=== PATIENT | male | born 1950 | race Caucasian/White ===

== ENCOUNTER 2020-04-20 20:41 | Emergency (ER) | payer MEDICARE ==
[~2020-04-20] VITALS: Ht 172.7 cm; Wt 63.5 kg
[2020-04-20 21:15] LABS: BASOPHILS ABSOLUTE AUTO 0.09 K/mm3 (0.00-0.23); BASOPHILS PERCENT AUTO 1 % (0-2); EOSINOPHILS ABSOLUTE AUTO 0.18 K/mm3 (0.00-0.68); EOSINOPHILS PERCENT AUTO 2 % (0-6); Hematocrit 47.3 % (37.0-53.0); Hemoglobin 15.5 g/dL (13.5-17.5); IMMATURE GRAN ABSOLUTE AUTO 0.03 K/mm3 (0.00-0.10); IMMATURE GRAN PERCENT AUTO 0 % (0-1); LYMPHOCYTES ABSOLUTE AUTO 1.73 K/mm3 (0.84-5.20); LYMPHOCYTES PERCENT AUTO 18 % (21-46); MONOCYTES ABSOLUTE AUTO 0.67 K/mm3 (0.16-1.47); MONOCYTES PERCENT AUTO 7 % (4-13); Mean Corpuscular HGB 32.8 pg (26.0-34.0); Mean Corpuscular HGB Conc 32.8 g/dL (31.5-36.5); Mean Corpuscular Volume 100 fL (80-100); Mean Platelet Volume 10.8 fL (9.1-12.4); NEUTROPHILS ABSOLUTE AUTO 7.02 K/mm3 (1.96-9.15); NEUTROPHILS PERCENT AUTO 72 % (41-73); Platelet Count 212 K/mm3 (150-400); RDW Coefficient Variation 13.1 % (11.7-14.2); RDW Standard Deviation 48.7 fL (35.1-46.3); Red Blood Cell Count 4.73 M/mm3 (4.30-5.90); White Blood Cell Count 9.72 K/mm3 (4.00-11.30)
[2020-04-20 21:36] LABS: Troponin I <0.015 ng/mL (0.000-0.040)
[2020-04-20 22:02] LABS: Alanine Aminotransfer (ALT/SGP 32 U/L (12-78); Albumin, Blood 4.4 g/dL (3.4-5.0); Albumin/Globulin Ratio 1.1 (0.8-1.8); Alk Phos 60 U/L (50-136); Anion Gap 7 mmol/L (6-16); Aspartate Aminotrans (AST/SGOT 24 U/L (12-37); Bilirubin, Total 0.3 mg/dL (0.1-1.0); Blood Urea Nitrogen 11 mg/dL (8-24); Bun/Creatinine Ratio 11.1 (12.0-20.0); CO2, Blood 26 mmol/L (21-32); Calcium, Blood 9.3 mg/dL (8.5-10.1); Chloride, Blood 112 mmol/L (98-108); Creatinine, Blood 0.99 mg/dL (0.60-1.20); Glomerular Filtration Rate >60 (60-); Potassium, Blood 3.4 mmol/L (3.5-5.5); Sodium, Blood 145 mmol/L (136-145); Total Protein, Blood 8.4 g/dL (6.4-8.2)
[2020-04-20 22:03] LABS: Glucose, Blood 46 mg/dL (70-99)
[2020-04-20 22:35] LABS: Magnesium, Blood 1.9 mg/dL (1.6-2.4)
[2020-04-20 22:35] LABS: Source, Urine Clean Catch
[2020-04-20 22:41] LABS: Bilirubin, Urine Neg (Neg); Blood, Urine Neg (Neg); Glucose Qualitative, Urine 2+ (Neg); Ketones, Urine Neg (Neg); Leukocyte Esterase, Urine Neg (Neg); Nitrite, Urine Neg (Neg); Protein, Urine Neg (Neg); Urobilinogen, Urine NORM (Normal)
[2020-04-20 22:45] LABS: Appearance, Urine Clear (Clear); Color, Urine Yellow (P-Yellow)
[2020-04-20] MEDS ORDERED: METO10 PO (22:58)
== END 2020-04-21 00:25 | disposition home or self-care (01) ==
LOC: ER 20:41
PROVIDERS: Physician Assistant
DX: K56.7 Ileus, unspecified (principal); E16.2 Hypoglycemia, unspecified; E83.42 Hypomagnesemia; E87.6 Hypokalemia
CPT/HCPCS: 36415; 74176; 80053; 81003; 82947; 83690; 83735; 84484; 85025; 93005; 93010; 96361; 96374; 96375; 99284-25; A9270; J2765; J3475; J3480; J7030

== ENCOUNTER 2020-08-06 13:59 | Emergency (ER) | payer MEDICARE ==
[~2020-08-06] VITALS: Ht 177.8 cm; Wt 69.0 kg
[~2020-08-06 13:59] MED LIST: METO10 PO
[2020-08-06] MEDS ORDERED: CEPH500 PO (17:32)
== END 2020-08-06 17:50 | disposition home or self-care (01) ==
LOC: ER 13:59
DX: S62.522B Displaced fracture of distal phalanx of left thumb, initial encounter for open fracture (principal); F17.200 Nicotine dependence, unspecified, uncomplicated; Z23 Encounter for immunization; W31.2XXA Contact with powered woodworking and forming machines, initial encounter
CPT/HCPCS: 12002; 73140; 90471; 90714; 99282; A9270

== ENCOUNTER 2021-07-13 11:18 | Emergency (ER) | payer MEDICARE ==
[~2021-07-13] VITALS: Ht 177.8 cm; Wt 64.0 kg
[~2021-07-13 11:18] MED LIST changes: +CEPH500 PO
== END 2021-07-13 13:59 | disposition home or self-care (01) ==
LOC: ER 11:18
DX: L73.9 Follicular disorder, unspecified (principal); Z87.891 Personal history of nicotine dependence
CPT/HCPCS: 10061; 99283-25

== ENCOUNTER 2023-03-11 09:05 | Emergency (ER) | payer MEDICARE ==
[~2023-03-11] VITALS: Ht 172.7 cm; Wt 65.8 kg
[2023-03-11 09:53] LABS: Hematocrit 31.7 % (37.0-53.0); Hemoglobin 10.8 g/dL (13.5-17.5); Mean Corpuscular HGB 32.4 pg (26.0-34.0); Mean Corpuscular HGB Conc 34.1 g/dL (31.5-36.5); Mean Corpuscular Volume 95 fL (80-100); Mean Platelet Volume 8.9 fL (9.1-12.4); Platelet Count 411 K/mm3 (150-400); RDW Coefficient Variation 13.3 % (11.7-14.2); Red Blood Cell Count 3.33 M/mm3 (4.30-5.90); White Blood Cell Count 3.03 K/mm3 (4.00-11.30)
[2023-03-11] MEDS ORDERED: Ventolin/Prove6.7 GM INH (10:11)
[2023-03-11] MEDS ORDERED: ONDANSETRON ODT 8MG (10:11)
[2023-03-11] MEDS ORDERED: LEVOFLOXACIN50011 PO (10:11)
[2023-03-11] MEDS ORDERED: ATOR10 PO (10:12)
[2023-03-11 10:19] LABS: Albumin, Blood 2.1 g/dL (3.4-5.0); Albumin/Globulin Ratio 0.4 (0.8-1.8); Bilirubin, Total 0.3 mg/dL (0.1-1.0); Bun/Creatinine Ratio 13.8 (12.0-20.0); Calcium, Blood 8.7 mg/dL (8.5-10.1); Creatinine, Blood 1.16 mg/dL (0.60-1.20); Globulin, Blood 4.8 g/dL (2.2-4.0); Potassium, Blood 3.9 mmol/L (3.5-5.5); Total Protein, Blood 6.9 g/dL (6.4-8.2)
[2023-03-11 10:34] LABS: BASOPHILS ABSOLUTE MAN 0.03 K/mm3 (0.00-0.23); BASOPHILS PERCENT MAN 1 % (0-2); EOSINOPHILS ABSOLUTE MAN 0.12 K/mm3 (0.00-0.68); EOSINOPHILS PERCENT MAN 4 % (0-6); LYMPHOCYTES % ATYPICAL MANUAL 7 % (0-0); LYMPHOCYTES ABSOLUTE MAN 1.21 K/mm3 (0.84-5.20); LYMPHOCYTES PERCENT MAN 33 % (21-46); MONOCYTES ABSOLUTE MAN 0.33 K/mm3 (0.16-1.47); MONOCYTES PERCENT MAN 11 % (4-13); NEUTROPHILS ABSOLUTE MAN 1.33 K/mm3 (1.96-9.15); SEG NEUTROPHILS PERCENT MAN 44 % (41-73); TOTAL CELLS COUNTED 100
[2023-03-11] MEDS ORDERED: MORP15ER PO (11:48)
[2023-03-11 12:34] VITALS: BP 104/67
[2023-03-17] MEDS ORDERED: DEXA4 (15:37)
== END 2023-03-11 12:33 | disposition home or self-care (01) ==
LOC: ER 09:05
PROVIDERS: Emergency Medicine
DX: J90 Pleural effusion, not elsewhere classified (principal); C34.92 Malignant neoplasm of unspecified part of left bronchus or lung; Z79.899 Other long term (current) drug therapy; Z87.891 Personal history of nicotine dependence
CPT/HCPCS: 71045; 80053; 83880; 84484; 85025; 93005; 93010; 96374; 99285-25; J2270

== ENCOUNTER 2023-07-03 13:22 | Emergency (ER) | payer MEDICARE ==
[~2023-07-03] VITALS: Ht 177.8 cm; Wt 79.4 kg
[~2023-07-03 13:22] MED LIST changes: +ATOR10 PO; +DEXA4; +LEVOFLOXACIN50011 PO; +MORP15ER PO; +ONDANSETRON ODT 8MG; +Ventolin/Prove6.7 GM INH
[2023-07-03 15:58] VITALS: BP 99/77
== END 2023-07-03 17:53 | disposition home or self-care (01) ==
LOC: ER 13:22
DX: Z00.00 Encounter for general adult medical examination without abnormal findings (principal); Z98.890 Other specified postprocedural states; C34.90 Malignant neoplasm of unspecified part of unspecified bronchus or lung; I50.9 Heart failure, unspecified; I25.2 Old myocardial infarction; I25.10 Atherosclerotic heart disease of native coronary artery without angina pectoris; Z87.891 Personal history of nicotine dependence; Z79.899 Other long term (current) drug therapy
CPT/HCPCS: 99283

== ENCOUNTER 2023-08-13 12:38 | Inpatient (IN) | payer MEDICARE ==
[~2023-08-13] VITALS: Ht 172.7 cm; Wt 54.1 kg
[2023-08-13 13:07] LABS: BASOPHILS ABSOLUTE AUTO 0.01 K/mm3 (0.00-0.23); BASOPHILS PERCENT AUTO 0 % (0-2); EOSINOPHILS ABSOLUTE AUTO 0.01 K/mm3 (0.00-0.68); EOSINOPHILS PERCENT AUTO 0 % (0-6); Hematocrit 33.1 % (37.0-53.0); Hemoglobin 10.1 g/dL (13.5-17.5); IMMATURE GRAN ABSOLUTE AUTO 0.03 K/mm3 (0.00-0.10); IMMATURE GRAN PERCENT AUTO 0 % (0-1); LYMPHOCYTES ABSOLUTE AUTO 0.44 K/mm3 (0.84-5.20); LYMPHOCYTES PERCENT AUTO 5 % (21-46); MONOCYTES ABSOLUTE AUTO 0.59 K/mm3 (0.16-1.47); MONOCYTES PERCENT AUTO 7 % (4-13); Mean Corpuscular HGB 27.8 pg (26.0-34.0); Mean Corpuscular HGB Conc 30.5 g/dL (31.5-36.5); Mean Corpuscular Volume 91 fL (80-100); Mean Platelet Volume 9.8 fL (9.1-12.4); NEUTROPHILS ABSOLUTE AUTO 7.72 K/mm3 (1.96-9.15); NEUTROPHILS PERCENT AUTO 88 % (41-73); Platelet Count 218 K/mm3 (150-400); RDW Coefficient Variation 18.6 % (11.7-14.2); Red Blood Cell Count 3.63 M/mm3 (4.30-5.90)
[2023-08-13 13:35] LABS: Albumin, Blood 1.9 g/dL (3.4-5.0); Albumin/Globulin Ratio 0.3 (0.8-1.8); Bilirubin, Total 0.6 mg/dL (0.1-1.0); Bun/Creatinine Ratio 29.5 (12.0-20.0); Creatinine, Blood 0.85 mg/dL (0.60-1.20); Globulin, Blood 5.7 g/dL (2.2-4.0); Total Protein, Blood 7.6 g/dL (6.4-8.2)
[2023-08-13 14:27] LABS: Influenza A, PCR NEGATIVE (NEGATIVE); Influenza B, PCR NEGATIVE (NEGATIVE); Resp Syncytial Virus, PCR NEGATIVE (NEGATIVE); SARS-Cov-2 (COVID-19) PCR, MMC NEGATIVE (NEGATIVE)
[2023-08-13] MEDS ORDERED: Morphine Sulfate 10 MG/ML 1MLSYR IV ONE (14:30)
[2023-08-13 14:56] LABS: Source, Urine Clean Catch
[2023-08-13 14:58] LABS: Appearance, Urine Clear (Clear); Blood, Urine Neg (Neg); Color, Urine Amber (P-Yellow); Glucose Qualitative, Urine Neg (Neg); Ketones, Urine 1+ (Neg); Leukocyte Esterase, Urine Neg (Neg); Nitrite, Urine Neg (Neg); Protein, Urine 1+ (Neg); Specific Gravity, Urine 1.025 (1.003-1.022); Urobilinogen, Urine NORM (Normal)
[2023-08-13 15:07] LABS: Bilirubin, Urine 1+ (Neg)
[2023-08-13] MEDS ORDERED: NS 1,000 ML IV SCH (16:35)
[2023-08-13] MEDS ORDERED: Azithromycin 500 MG in NS 250 ML IV ONE (18:30)
[2023-08-13] MEDS ORDERED: CefTRIAXone Sodium 1,000 MG in NS 50 ML IV ONE (18:30)
[2023-08-13] MEDS ORDERED: Morphine Sulfate 4 MG/1 ML Injection IV PRN (19:45)
[2023-08-13] MEDS ORDERED: Acetaminophen 325 MG TABLET PO PRN (19:55)
[2023-08-13] MEDS ORDERED: FLU VACC QS2023-24(6MOS UP)/PF 60 MCG/0.5 ML SYRINGE IM ONE (19:55)
[2023-08-13] MEDS ORDERED: Ondansetron HCl 2 MG / ML 2ML Vial IV PRN (20:00)
[2023-08-13] MEDS ORDERED: Albuterol 2.5 MG/3 ML VIAL INH PRN (20:00)
[2023-08-13] MEDS ORDERED: Ampicillin Sod/Sulbactam Sod 3 GM in NS 100 ML IV SCH (20:30)
[2023-08-13] MEDS ORDERED: Lactobacil 2-S.Thermo-Bifido 1 1 Cap PO SCH (21:00)
[2023-08-13] MEDS ORDERED: Albuterol 2.5 MG/3 ML VIAL INH ONE (21:00)
[2023-08-13 21:45] VITALS: BP 89/72
[2023-08-13] MEDS ORDERED: NS 250 ML IV PRN (21:45)
--- NOTE | 2023-08-13 22:34 | NUR ---
ARRIVAL TO PCU: PT ARRIVED TO PCU6 AT 5 VIA [facility]. REPORT TAKEN FROM LEVI RN, THIS RN ASSUMED CARE OF PT. PT LETHARGIC ON ARRIVAL, ABLE TO WAKE EASILY TO VERBAL STIMULI. ORIENTED TO SELF AND FAMILY, STATES HE IS AT HOME AND IT IS THE 1970'S. PT REPEATEDLY STATES "PLEASE HELP ME" BUT UNABLE TO STATE SPECIFIC NEEDS. SLID FROM [facility] TO BED BY STAFF. SPO2 80'S ON ARRIVAL, O2 TITRATED TO 8-10L TO MAINTAIN SPO2 >90%. ABLE TO TITRATE BACK DOWN TO 6L VIA NC. SBP 80'S W/ MAP >65. SINUS RHYTHM ON TELE. DENIES CHEST PAIN/PRESSURE BUT C/O GENERALIZED PAIN. MEDICATED IN ED FOR PAIN PRIOR TO TRANSPORT, REPOSITIONED ON LEFT SIDE FOR COMFORT. GI/ APPEARS WNL ON INITIAL ASSESSMENT. SKIN PALE & FRAGILE W/ MULTIPLE SKIN TEARS & SCABS SCATTERED T/O. STAGE 1 PRESSURE INJURY PRESENT ON COCCYX, APPROX 1CM IN DIAMETER. PT REMAINS ON SIDE TO ALLEVIATE PRESSURE ON AREA OF BREAKDOWN. SCD'S APPLIED TO BLE PER ORDERS. IV ABX INFUSING PER EMAR. PT UNABLE TO PROVIDE HISTORY OR MEDS/ALLERGIES AT THIS TIME. ORIENTED TO ROOM/UNIT/CALL LIGHT. BED ALARM ON FOR PT SAFETY.
[2023-08-13 23:21] VITALS: BP 90/63
[2023-08-14] MEDS ORDERED: OLANZapine 10 MG Vial IM ONE (02:35)
--- NOTE | 2023-08-14 02:39 | NUR ---
PHYSICIAN CONTACT: PT BECOMING INCREASINGLY AGITATED THIS AM, YELLING OUT "HELP ME" AND "MERCEDES, PLEASE COME HELP ME" APPROXIMATELY EVERY 30-60 SECONDS. PT CONFUSED, APPEARS ANXIOUS. UNABLE TO STATE WHY HE NEEDS HELP OR IF HE IS IN PAIN. PAIN TREATED PER EMAR BASED ON FLACC SCALE W/O IMPROVEMENT IN AGITATION. CALL PLACED TO . WITH ORDERS TO BLADDER SCAN FOR RETENTION THEN ADMINISTER ZYPREXA IF NO IMPROVEMENT. BLADDER SCAN >420ML, STRAIGHT CATH PERFORMED BY THIS RN W/ 500ML OUTPUT. IF AGITATION DOES NOT IMPROVE FOLLOWING COMPLETION OF STRAIGHT CATH, WILL ADMINISTER ZYPREXA PER EMAR.
[2023-08-14 03:12] VITALS: BP 83/67
[2023-08-14 04:12] LABS: Hematocrit 25.3 % (37.0-53.0); Hemoglobin 7.9 g/dL (13.5-17.5); Mean Corpuscular HGB 28.1 pg (26.0-34.0); Mean Corpuscular HGB Conc 31.2 g/dL (31.5-36.5); Mean Corpuscular Volume 90 fL (80-100); Mean Platelet Volume 9.8 fL (9.1-12.4); Platelet Count 175 K/mm3 (150-400); RDW Coefficient Variation 18.5 % (11.7-14.2); RDW Standard Deviation 61.4 fL (35.1-46.3); Red Blood Cell Count 2.81 M/mm3 (4.30-5.90); White Blood Cell Count 6.16 K/mm3 (4.00-11.30)
[2023-08-14 04:30] LABS: Calcium, Blood 8.3 mg/dL (8.5-10.1); Creatinine, Blood 0.74 mg/dL (0.60-1.20); Potassium, Blood 3.5 mmol/L (3.5-5.5)
--- NOTE | 2023-08-14 05:01 | NUR ---
END OF SHIFT NOTE: SEE PREVIOUS NOTES FOR UPDATES. PT RECEIVED 1X DOSE OF ZYPREXA DUE TO AGITATION W/ MODERATE IMPROVEMENT. ABLE TO SLEEP IN SHORT INCREMENTS. VITALS REMAIN STABLE; BP SOFT BUT MAP >65. OXYGEN TITRATED DOWN TO 3L VIA NC W/ SPO2 >90%. RESPIRATIONS EVEN & UNLABORED. Q2HR REPOSITIONING IMPLEMENTED. NO OTHER NEEDS AT THIS TIME. CALL LIGHT IN REACH, BED ALARM ON FOR SAFETY. WILL REPORT TO ONCOMING RN.
[2023-08-14 07:00] VITALS: BP 92/72
[2023-08-14] MEDS ORDERED: Enoxaparin 40 MG/0.4 ML SYR SC SCH (09:00)
[2023-08-14 11:39] VITALS: BP 92/71
[2023-08-14] MEDS ORDERED: ATOR10 PO (11:54)
[2023-08-14] MEDS ORDERED: FOLI1 PO (11:55)
[2023-08-14] MEDS ORDERED: Prochlorperazin10 MG PO (11:55)
[2023-08-14] MEDS ORDERED: DECADRON4 M1 (11:56)
[2023-08-14] MEDS ORDERED: Aspir 8181 MG PO (11:57)
[2023-08-14 12:11] LABS: Hematocrit 28.4 % (37.0-53.0); Hemoglobin 8.7 g/dL (13.5-17.5)
--- NOTE | 2023-08-14 12:14 | NUR ---
Palliative care had in depth conversation with pt's son and daughter at bedside today. They wanted to discuss code status, and while they initially elected Full Code, they decided today to change pt's code status to DNR. The were not ready for Comfort Care at this time, but pt's son states the patient did have a hospice eval 2 weeks ago, and he was competent at that time, and declined hospice services then. He is currently being seen by Home Health for PleurX management. The plan at this time is to continue treating and watch patient for the next 2 or so days then re-evaluate his plan of care.
[2023-08-14 12:29] LABS: Percent Saturation 8.7 % (20.0-50.0)
[2023-08-14 14:41] LABS: Source, Urine Foley catheter
[2023-08-14 14:44] LABS: Appearance, Urine Clear (Clear); Bilirubin, Urine Neg (Neg); Blood, Urine Neg (Neg); Color, Urine Yellow (P-Yellow); Glucose Qualitative, Urine Neg (Neg); Ketones, Urine Neg (Neg); Leukocyte Esterase, Urine 1+ (Neg); Nitrite, Urine Neg (Neg); Protein, Urine 2+ (Neg); Urobilinogen, Urine 1+ (Normal)
[2023-08-14] MEDS ORDERED: Azithromycin 500 MG in NS 250 ML IV SCH (15:00)
[2023-08-14] MEDS ORDERED: Morphine Sulfate 4 MG/1 ML Injection IV PRN (15:10)
[2023-08-14 15:24] LABS: Bacteria Few /hpf; Hyaline Casts 0-2 /lpf (0-2); Red Blood Cells, Urine 0-2 /hpf (0-2); Squamous Epithelial Cells Rare /hpf (Few)
[2023-08-14] MEDS ORDERED: Pantoprazole Sodium 40 MG Injection IV SCH (16:30)
[2023-08-14 16:45] VITALS: BP 80/63
--- NOTE | 2023-08-14 17:59 | NUR ---
SHIFT SUMMARY PT ALERT AND ORIENTED TO SELF AND FAMILY. PT DENIES CHEST PAIN/PRESSURE. PT HYPOTENSIVE, BP TRENDING DOWN MAP>65 NOTIFIED. SPO2 >92% ON 2L O2 VIA NC. PT EASILY AGITATED WHEN REPOSITIONED IN BED BUT IS REDIRECTABLE. PT URINARY RETENTION THROUGHOUT SHIFT SEE BLADDER SCAN CHARTING. MERCADO PLACED DRAINING TO GRAVITY. PALLIATIVE CARE CONSULTED FAMILY AND PT TODAY. PT CODE STATUS CHANGED TO DNR. PT MEDICATED FOR PAIN PER EMAR. PT REPOSITIONED FREQUENTLY. NO ACUTE CHANGES.
[2023-08-14] MEDS ORDERED: Midodrine 5 MG Tab PO SCH (18:00)
[2023-08-14 19:36] VITALS: BP 81/58
[2023-08-14 23:39] VITALS: BP 93/60
[2023-08-15 03:35] LABS: BASOPHILS PERCENT AUTO 0 % (0-2); EOSINOPHILS ABSOLUTE AUTO 0.03 K/mm3 (0.00-0.68); EOSINOPHILS PERCENT AUTO 1 % (0-6); Hematocrit 24.2 % (37.0-53.0); Hemoglobin 7.6 g/dL (13.5-17.5); IMMATURE GRAN ABSOLUTE AUTO 0.02 K/mm3 (0.00-0.10); IMMATURE GRAN PERCENT AUTO 0 % (0-1); LYMPHOCYTES ABSOLUTE AUTO 0.56 K/mm3 (0.84-5.20); LYMPHOCYTES PERCENT AUTO 10 % (21-46); MONOCYTES ABSOLUTE AUTO 0.42 K/mm3 (0.16-1.47); MONOCYTES PERCENT AUTO 8 % (4-13); Mean Corpuscular HGB 28.1 pg (26.0-34.0); Mean Corpuscular HGB Conc 31.4 g/dL (31.5-36.5); Mean Corpuscular Volume 90 fL (80-100); Mean Platelet Volume 10.1 fL (9.1-12.4); NEUTROPHILS ABSOLUTE AUTO 4.49 K/mm3 (1.96-9.15); NEUTROPHILS PERCENT AUTO 81 % (41-73); Platelet Count 176 K/mm3 (150-400); RDW Coefficient Variation 18.7 % (11.7-14.2); RDW Standard Deviation 61.7 fL (35.1-46.3); White Blood Cell Count 5.52 K/mm3 (4.00-11.30)
[2023-08-15 03:40] VITALS: BP 85/66
--- NOTE | 2023-08-15 03:52 | NUR ---
SHIFT SUMMARY NO ACUTE CHANGES THIS SHIFT. VSS WITH CHRONIC HYPOTENSION, MAPS >65. PT YELLS OUT OFTEN, "HELP ME", WHEN STAFF ARRIVE TO ROOM, PT UNABLE TO STATE NEED AND JUST CONTINUES TO REPETIVELY STATE "HELP ME". WITH TURNING, PT BECOMES BELLIGERANT BUT QUICKLY CALMS BACK DOWN. IV MOP ADMINISTERED TO AFFECT, GENERALLY COINCIDING WITH MAJOR REPOSITIONING TURNS. REMAINS ON 2LNC. MERCADO PATENT, OLIGURIA WITH 350ML OUTPUT NOTED. PT WITH LITTLE PO INTAKE. OTHERWISE, PT RESTING OFF AND ON. BED ALARM ON. BED IN LOW POSITION.
[2023-08-15 03:59] LABS: Bun/Creatinine Ratio 29.8 (12.0-20.0); Calcium, Blood 8.3 mg/dL (8.5-10.1); Creatinine, Blood 0.77 mg/dL (0.60-1.20); Potassium, Blood 3.3 mmol/L (3.5-5.5)
[2023-08-15] MEDS ORDERED: Potassium Chloride 20 MEQ TabCR PO ONE (08:45)
[2023-08-15] MEDS ORDERED: Folic Acid 1 MG TAB PO SCH (09:00)
[2023-08-15 09:29] VITALS: BP 94/73
--- NOTE | 2023-08-15 11:30 | NUR ---
PT WAKES EASILY TO VERBAL STIMULI, MENTATION WAXES AND WANES, HE OFTEN CALLS OUT "HELP ME" THEN CAN NOT RECALL ASKING FOR HELP AND BEGINS CURSING AT STAFF. EVEN CHEST RISE AND FALL NOTED, SHALLOW NON LABORED BREATHING NOTED, HE IS ON 2L NASAL CANNULA WITH SPO2 >92%. DENIES CP, SR 99 NOTED ON MONITOR. SKIN WITH SCABS NOTED T/O, DRESSING OVER COCCYX REMAINS INTACT. BLOOD PRESSURES HAVE MAINTAINED A MAP GREATER THAN 65 FOR THE MORNING. MERCADO DRAINING SMALL AMOUNT OF STRAW COLORED URINE TO GRAVITY. HE REMAINS WITH 1+ EDEMA TO LLE. SKIN IS PALE T/O, AND DRY. PT GRIMACES AND YELLS OUT CURSING WHEN REPOSITIONED STATING "IT HURTS EVERYWHERE" PAIN ONLY REPORTED WITH MOVEMENT.
[2023-08-15 12:11] VITALS: BP 84/63
[2023-08-15 17:37] VITALS: BP 91/70
[2023-08-15 19:39] VITALS: BP 132/76
[2023-08-15 20:09] VITALS: BP 82/60
--- NOTE | 2023-08-15 20:57 | NUR ---
PT 2100 MEDS HELD DUE TO PT ASPIRATING FOOD/FLUIDS
[2023-08-15] MEDS ORDERED: LORazepam 2 MG/ML 1ML Injection IV PRN (22:05)
[2023-08-16] VITALS (7 sets, daily range): BP systolic 78–99; BP diastolic 58–75
[2023-08-16] MEDS ORDERED: OLANZapine 10 MG Vial IM ONE (02:45)
--- NOTE | 2023-08-16 04:59 | NUR ---
PT IS ALERT NOT ORIENTED. HE HAS BEEN UNABLE TO GET MUCH REST TONIGHT DUE TO ANGITATION. MD NOTIFIED AND ORDERS PLACED. PT MEDICATED PER EMAR. HE CONTINUES TO BE CONFUSED AND CRY OUT FOR HELP. HE HAS A MERCADO THAT IS DRAINING TO GRAVITY. HE WAS HAVING DIFFICULTY HANDLING LIQUIDS. MD NOTIFIED AND ORDERS WERE PLACED TO HAVE THE PT NPO AND A SPEECH EVAL. HIS LUNG SOUNDS ARE DIMINISHED T/O. HE IS ON 2L NC TO MAINTAIN SPO2 >90%. HE IS UNABLE TO COMMUNICATE HIS NEEDS, HE WAS MEDICATED PER THE EMAR FOR PAIN. PT BED IN LOWEST POSITION AND CALL LIGHT IN REACH. WILL REPORT TO ONCOMING RN
--- NOTE | 2023-08-16 15:39 | NUR ---
Pt anxious at time increased secretions sleeping most of time. Called family to disucss plan of care. Son came in states they have been working with amedysis. Son wants treatment and transiton home to hospice. Daughter in to visit struggling with pt decline want to initiate comfort care. Review with nursing will update family and review plan of care.
--- NOTE | 2023-08-16 17:07 | NUR ---
PT AWAKENS EASILY TO VERBAL STIMULI, HIS ORIENTATION WAXES AND WANES T/O THE DAY, AT TIMES HE CAN RECOGNIZE STAFF OTHERS HE CAN NOT. HE IS OREIEND TO SELF ONLY. HE CALLS OUT FOR FAMILY AND FOR HELP, WHEN ASKED WHAT HE NEEDS HELP WITH HE STATES "I DON'T KNOW". RESPIRATIONS ARE EVEN, SHALLOW, BUT UNLABORED, HE REAMINS ON 1-2L O2 VIA NASAL CANNULA, LUNG SOUNDS ARE DIMINISHED IN ALL LOBES. HEART RATE WAS SINUS IN 90s WHEN TELE WAS D/C THIS AM. RADIAL PULSES ARE STRONG, PEDAL PULSES ARE FAINT WITH CONTINUED 1-2+ EDEMA NOTED TO LEFT FOOT WHICH IS UNCHANGED FROM YESTERDAY. NO BM TODAY. MERCADO REMAINS INPLACE DRAINING STRAW COLORED URINE TO GRAVITY. HE REMAINS NPO, PER SPEECH THERAPY PT WAS UNWILLING TO PARTICIPATE IN SWALLOW EVALUATION, PT HAS BEEN RELUCTANT TO USE ORAL SWABS. HE HAS NOT RECIEVED ORAL MEDICAITONS HE IS NPO. MAPs HAVE REMAINED GRETER THAN 65 TODAY WITHOUT MIDODRINE. PALLIATIVE CARE CONTINUES TO FOLLOW PATIENT, PT REMAINS DNR WITH NOT COMFORT ORDERS. PT WAS MEDICATED ONCE TODAY FOR PAIN WITH 2MG MORPHINE WHICH WAS TOLERATED WELL. PT HAD A BEDBATH THIS EVENING. HE HAS BEEN REPOSITIONED EVERY TWO HOURS. REPORT WAS CALLED TO PRESTON MARKS ON MEDICAL FLOOR THAT WILL ASSUME PT CARE WHEN HE ARRIVES TO ROOM 333.
--- NOTE | 2023-08-16 17:25 | NUR ---
Pt arrived to 333 via bed from PCU, report obtained from [facility], pt is laying with eyes closed, calls out periodically, states he's ok, egg crate was placed on mattress for comfort, no s/s of distress noted, piv flushes well, dressing intact, call light in reach.
[2023-08-16] MEDS ORDERED: LORazepam 2 MG/ML 1ML Injection IV PRN (20:20)
[2023-08-16] MEDS ORDERED: HYDROmorphone HCl/Pf 1MG SYR IV PRN (20:20)
[2023-08-16] MEDS ORDERED: Scopolamine Hydrobromide Patch TOP PRN (21:20)
[2023-08-16] MEDS ORDERED: Morphine Sulfate 20 MG/1ML 1 ML Oral Syringe SL PRN (21:20)
[2023-08-16] MEDS ORDERED: LORazepam 1 MG Tab PO PRN (21:20)
[2023-08-16] MEDS ORDERED: Atropine Sulfate 1% Opth Soln 2ML BTL SL PRN (21:20)
[2023-08-16] MEDS ORDERED: Morphine Sulfate 10 MG/ML 1MLSYR IV PRN (21:20)
--- NOTE | 2023-08-17 06:03 | NUR ---
SHIFT SUMMARY: PT IS ADMITTED FOR ACUTE RESPIRATORY FAILURE WITH HYPOXIA AND IS A DNR. FAMILY, BROTHER AND DAUGHTER AGREED TO PLACE PT ON COMFORT CARE ABOUT 2029. HE HAS BEEN ALERT TO SELF AND CALLING OUT OFF AND ON THROUGH SHIFT. HAVE BEEN GIVING HIM PRN PAIN MANAGEMENT ABOUT EVERY 90-120 MIN HE HAS SHOWN SIGNS THAT HE HAS BEEN PAINFUL. ALSO GIVEN ATIVAN X2 FOR AGITATION. FOLLEY IN PLACE AND DRAINING CLEAR YELLOW URINE. FAMILY AT BEDSIDE THROUGH MOST OF THE NIGHT.
[2023-08-17] MEDS ORDERED: LORazepam 2 MG/ML 1ML Injection IV PRN (07:55)
[2023-08-17] MEDS ORDERED: Morphine Sulfate 20 MG/1ML 1 ML Oral Syringe SL PRN (07:55)
[2023-08-17] MEDS ORDERED: Ampicillin Sod/Sulbactam Sod 3 GM ONE (16:45)
--- NOTE | 2023-08-17 18:34 | NUR ---
REPORT RECEIVED VERIFIED PT NOT ALERT BUT IS CRYING OUT, VERY AGITATED YELLING FOR HELP. PT COMFORTED AND AND MEDICARTED WITHOUT ANY SUCCESS. 0900 FAMILY AT BEDSIDE AND VERY UPSET THAT PT IS IN DISTRESS. I REASSURED THAT WE WOULD DO WHAT WE NEEDED TO CALM PT. REPOSITIONING AND ADDITIONAL MEDICATION GIVEN. PT STILL AGITATED BUT IS FINDING SOME RELIE, MORE MOMENTS INBETWEEN YELLING. MANY VISITERS AT BEDSIDE. EXTENSIVE ORAL CLEANING DONE. GAVE SOME COFFEE VIA SPONG AND PT ENJOYED THAT. MORE MEDICATION GIVEN AND PT FELL ASLEEP, IS NOW VERY COMFORTABLE AND FAMILY VERY THANKFUL. PT REPOSITIONED EVERY 2 HOURS WITHOUT ANY ISSUES. SENT DAUGHTER HOME TO SLEEP BECAUSE SHE WAS HERE ALL NIGHT. CONT IV MEDICATION BECAUSE PT NO LONGER ABLE TO SWALLOW. WILL CONT TO MONITOR PT REPOSITIONED AND RELAXED.
[2023-08-18] MEDS ORDERED: Ampicillin Sod/Sulbactam Sod 3 GM ONE (00:21)
[2023-08-18] MEDS ORDERED: NS 100 ML IV ONE (05:03)
--- NOTE | 2023-08-18 05:55 | NUR ---
COMFORT CARE SHIFT SUMMARY PATIENT IS NOT ALERT AND NOT ORIENTED. PATIENT HAS BEEN MEDICATED FOR PAIN AND ANXIETY. MEDICATION HAS BEEN MORE EFFECTIVE THAN IN PRIOR SHIFTS PER PRIOR NURSE NOTES. PATIENT HAS BEEN MEDICATED TWICE FOR PAIN. PATIENT HAS BEEN REPOSITIONED Q2 FOR COMFORT. PATIENT STILL CRIES OUT BUT IS FARTHER AND FARTHER APART. BED IN LOCKED AND LOWEST POSITION. MERCADO IS PATENT AND DRAINING TEA COLORED CONCENTRATED URINE. WILL CONTINUE TO MONITOR.
--- NOTE | 2023-08-18 18:54 | NUR ---
COMFORT CARE SUMMARY ARRIVED PT CRYING OUT VERY AGITATED. MULTIPLE ATTEMPTS AT REPOSITIONING AND DEEP ORAL CARE DONE WITH NO LUCK CALMING PT DOWN 0900 FAMILY AT BEDSIDE AND STATED PT WAS NOT AGGITATED DAY BEFORE YET MULTIPLE ATTEMPS WERE MADE AND ADDITIONAL MEDICATION GIVEN, A LOT OF ORAL CARE DONE THICK MUCUS REMOVED FROM BACK OF THROAT. PT HAS POOR SWALLOW AND VERY WET LUNG SOUNDS. IV MEDS DCED BUT A CONTINOUS IV TKO ADDED TO HELP WITH HYDRATION. MERCADO STILL DRAINING ADAQUATE AMOUNT. PT CALM AND RELAXED NOW FAMILY AT BEDSIDE MORE ORAL CARE DONE. SCOPALAMINE PATHCH PLACED TO LEFT NECK AND ATROPINE DROPS USED TO CLEAR UP SECREATIONS.
--- NOTE | 2023-08-19 08:17 | NUR ---
SHIFT SUMMARY PT IS COMFORT CARE AND SOMNOLENT. WILL OPEN EYES WITH REPOSITIONS. AMY DURAN AT BEDSIDE T/O NOC. NO ACUTE CHANGES OVER NOC. MEDICATED PER EMAR TO MAKE PT COMFORTABLE. MERCADO CATHETER WITH MINIMAL OUTPUT, NO BM THIS SHIFT. BED IN LOWEST POSITION, FREQUENT ROUNDING.
[2023-08-19] MEDS ORDERED: MORP20L PO (11:36)
[2023-08-19] MEDS ORDERED: ATROPINE SULFATE2 M1 SL (11:36)
[2023-08-19] MEDS ORDERED: LORA1 PO (11:37)
[2023-08-19] MEDS ORDERED: TRANSDERM-SCOP1 EA13 TD (11:37)
--- NOTE | 2023-08-19 12:30 | NUR ---
DISCHARGED HOME WITH FAMILY VIA GURNEY. BELONGINGS WITH PTS FAMILY ON DISCHARGE. LARGE AMOUNT OF VISITORS PRIOR TO LEAVING. HAD BEEN UNRESPONSIVE WITH BREATHING EVEN AND UNLABORED AT 12/MINUTE. MEDICATED WITH ATIVAN JUST PRIOR TO LEAVING
== END 2023-08-19 12:32 | disposition hospice, home (50) | DRG 177 ==
LOC: ER 12:38 → PCU 19:54 → MEDS 19:54 → PCU 21:18 → MEDS 08-16 17:20 → ENPENDDIS 08-19 09:53 → MEDS 08-19 12:32
PROVIDERS: Family Medicine; Nurse Practitioner Acute Care; Student in an Organized Health Care Education/Training Program; ADMIT Internal Medicine
DX: J69.0 Pneumonitis due to inhalation of food and vomit (principal); E43 Unspecified severe protein-calorie malnutrition; J96.01 Acute respiratory failure with hypoxia; G92.8 Other toxic encephalopathy; Z68.1 Body mass index [BMI] 19.9 or less, adult; J90 Pleural effusion, not elsewhere classified; C34.90 Malignant neoplasm of unspecified part of unspecified bronchus or lung; D84.821 Immunodeficiency due to drugs; J44.0 Chronic obstructive pulmonary disease with (acute) lower respiratory infection; Z66 Do not resuscitate; Z51.5 Encounter for palliative care; I25.10 Atherosclerotic heart disease of native coronary artery without angina pectoris; E87.6 Hypokalemia; Z96.89 Presence of other specified functional implants; I95.9 Hypotension, unspecified; D64.9 Anemia, unspecified; J43.9 Emphysema, unspecified; K21.9 Gastro-esophageal reflux disease without esophagitis; Z85.01 Personal history of malignant neoplasm of esophagus; Z90.49 Acquired absence of other specified parts of digestive tract; Z87.891 Personal history of nicotine dependence; Z79.82 Long term (current) use of aspirin; Z79.891 Long term (current) use of opiate analgesic; Z11.52 Encounter for screening for COVID-19
CPT/HCPCS: 0241U; 36415; 51701; 70450; 71046; 71260; 80048; 80053; 81001; 82607; 82728; 82746; 83540; 83550; 83605; 84145; 85014; 85018; 85025; 85027; 87040; 87086; 93005; 93010; 94640; 94664; 94760; 94762; 96361-59; 96365-59; 96366-59; 96367-59; 96375-59; 96376-59; 99285-25; A9270; C9113; J0295; J0456; J0696; J1650; J2060; J2270; J7030; J7050; Q9967